=== PATIENT | female | born 1940 | race Caucasian/White ===

== ENCOUNTER 2020-08-19 08:59 | Inpatient (IN) | payer MEDICARE ==
[~2020-08-19] VITALS: Ht 165.1 cm; Wt 62.7 kg
[2020-08-19] VITALS (7 sets, daily range): BP systolic 105–182; BP diastolic 52–88; Ht 165.1 cm; Wt 62.7 kg
--- NOTE | ~2020-08-19 | HEMODYNAMI ---
PATIENT:RIOS YLNN MEDICAL RECORD: [id number] : 42 [id number] ADMISSION DATE: 08/20/20 Generatedon:08/22/202012:44 Patient name: RIOS LYNN Patient #: [id number] SSN: [id number] : 1940 Date of study: 08/22/2020 Page: Of Hemodynamic Procedure Report Patient Data Patient Demographics Procedure consent was obtained First Name: RIOS Gender: Female Last Name: LEAH : 1940 Patient #: [id number] Age: 80 year(s) Race: SSN: [id number] Additional ID: [id number] Contact details Address: [place] [address] State: [place] City: [place] Zip code: [address] Past Medical History Allergies Allergen Reaction Date Comments Reported Other allergy 08/20/2020 pcn Other allergy 08/22/2020 pcn Admission Admission Data Admission Date: 08/20/2020 Admission Time: 14:07 Arrival Date: 08/20/2020 Arrival Time: 0:00 Admit Source: Other Insurance Payor: Medicare Room #: D.[address] [facility] #: [id number] Height (in.): 65 BSA: 1.69 (m2) Height (cm.): 165.1 BMI: 23.01 (kg/m2) Weight (lbs.): 138.27 Weight (kg.): 62.72 Lab Results Lab Result Date: 08/22/2020 Lab Result Time: 0:00 Biochemistry Name Units Result Min Max BUN mg/dl 19 --(----)*- 7 18 Creatinine mg/dl 0.8 --(-*--)-- 0.6 1.3 eGFR ml/min 73.26587 *-(----)-- 90 120 NONAFRICAN CBC Name Units Result Min Max Hematocrit % 30.8 *-(----)-- 42 54 Hemoglobin g/dl 9.8 *-(----)-- 13.5 17.5 Procedure Procedure Types Cath Procedure Diagnostic Procedure [facility] PCI Procedure Coronary Stent Coronary Stent Initial Hemochron ACT Test Procedure Description Procedure Date Procedure Date: 08/22/2020 Procedure Start Time: 12:13 Procedure End Time: 12:42 Procedure Staff Name Function Pool Moreno MD Performing Physician Nettie Ron RT Scrub Mariel Moraes RT Monitor Thalia Lyon, RN Nurse Procedure Data Cath Procedure Fluoroscopy Diagnostic fluoroscopy Total fluoroscopy Time: 3.4 time: 3.4 min min Diagnostic fluoroscopy Total fluoroscopy dose: 750 dose: 750 mGy mGy Contrast Material Contrast Material Type Amount (ml) Isovue 370 71 Entry Location Entry Primary Successful Side Size Upsize Upsize Entry Closure Succe ssful Closure Location (Fr) 1 (Fr) 2 (Fr) Remarks Device Remarks Femoral Right 6 Fr Perclose artery Short ProGlide Estimated blood loss: 10 ml Procedure Complications No complications Procedure Medications Medication Administration Route Dosage Oxygen etCO2 Nasal cannula 2 l/min Heparin Flush Bag added to field 2 bags (1000units/500ml NS) Lidocaine 2% added to field 20 0.9% NaCl I.V. 100 ml/hr Fentanyl I.V. 50 mcg Versed I.V. 1 mg Fentanyl I.V. 25 mcg Versed I.V. 0.5 mg Heparin Bolus I.V. 6000 units Hemodynamics Rest BSA: 1.69 (m2) HGB: 9.8 (g/dl) O2 Consumption: Estimated: 160.34 (ml/min) O2 Con sumption indexed: Estimated:94.88 (ml/min/m) Heart Rate: 83 (bpm) Snapshots Pre Cath Intra NCS Post Cath Vital Signs Time Heart Resp SPO2 etCO2 NIBP (mmHg) Rhythm Pain Sedation Rate (ipm) (%) (mmHg) Status Level (bpm) 11:49:00 74 14 99 0 158/78(127) NSR 0 (11) 10(A) , No pain 11:53:00 75 14 94 0 138/76(113) NSR 0 (11) 10(A) , No pain 11:57:04 76 15 93 0 138/65(113) NSR 0 (11) 10(A) , No pain 12:01:01 72 13 98 0 141/77(116) NSR 0 (11) 10(A) , No pain 12:05:03 72 12 98 0 135/71(111) NSR 0 (11) 10(A) , No pain 12:09:05 73 14 97 0 134/68(107) NSR 0 (11) 10(A) , No pain 12:13:06 74 13 98 0 128/67(108) NSR 0 (11) 10(A) , No pain 12:17:06 70 11 94 0 135/70(112) NSR 0 (11) 9(A) , No pain 12:21:08 74 11 98 0 122/67(92) NSR 0 (11) 9(A) , No pain 12:25:03 72 11 98 0 131/76(105) NSR 0 (11) 9(A) , No pain 12:29:03 72 11 100 0 140/72(110) NSR 0 (11) 9(A) , No pain 12:33:00 71 12 99 0 139/77(117) NSR 0 (11) 9(A) , No pain 12:37:02 67 11 98 0 139/69(108) NSR 0 (11) 9(A) , No pain 12:41:30 70 28 100 0 142/79(116) NSR 0 (11) 9(A) , No pain Medications Time Medication Route Dose Verified Delivered Reason Notes Effectiveness by by 11:44:44 Oxygen etCO2 2 Thalia Thalia for low 02 sats Nasal l/min Sonali Lyon, cannula RN RN 11:45:01 Heparin Flush added 2 Thalia Thalia used for Bag to bags Sonali Lyon procedure (1000units/500ml field RN RN NS) 11:45:13 Lidocaine 2% added 20ml Thalia Pool for local to vial Josh Lyon MD anesthetic field RN 11:45:39 0.9% NaCl I.V. 100 Thalia Thalia Per physician ml/hr Sonali Lyon, RN RN 12:13:26 Fentanyl I.V. 50 Thalia Thalia for sedation mcg Sonali Lyon, RN RN 12:13:31 Versed I.V. 1 mg Thalia Thalia for sedation Sonali Lyon, MENG RN 12:16:03 Fentanyl I.V. 25 Thalia Thalia for sedation mcg Sonali Lyon, RN RN 12:16:07 Versed I.V. 0.5 Thalia Thalia for sedation mg Sonali Lyon, MENG RN 12:17:34 Heparin Bolus I.V. 6000 Thalia Thalia for verif ied w units Sonali Lyon, anticoagulation noemi,rn RN tax form preparer Log Time Note 10:39:51 Patient Height : 65 inches 10:39:51 Patient Weight : 138.27 lbs 10:40:00 Informed consent obtained and on chart 10:40:56 Diagnostic Cath Status : Urgent 10:44:02 Lab Result : Hemoglobin 9.8 g/dl 10:44:02 Lab Result : eGFR NONAFRICAN 73.13715 ml/min 10:44:02 Lab Result : BUN 19 mg/dl 10:44:02 Lab Result : Creatinine 0.8 mg/dl 10:44:02 Lab Result : Hematocrit 30.8 % 11:05:54 Admit Source: Other 11:05:59 Procedure Status PCI. 11:06:03 Time tracking: Regular hours (M-F 7:00 - 5:00) 11:06:15 Plan of Care:Hemodynamics will remain stable., Cardiac rhythm will remain stable., Comfort level will be maintained., Respiratory function will remain adequate., Patient/ family verbilizes understanding of procedure., Procedure tolerated without complication., Recovers from procedure without complications.. 11:06:57 H&P Date Dictated: 08/22/2020 Within 30 days and on chart.. 11:06:58 Pre-procedure instructions explained to patient. 11:06:58 Pre-op teaching completed and patient verbalized understanding. 11:07:00 Family unavailable. 11:07:02 Patient NPO since Midnight. 11:07:58 Patient allergic to Other allergypcn 11:08:07 Alarms reviewed by R. N. 11:08:08 Sharps counted by scrub and verified by R.N. 11:29:54 Nettie Ron RT(R) (CV) sent for patient. Start room use. 11:37:21 Patient received from Med II to CCL 2 Alert and oriented. Tansferred to table in Supine position. 11:37:22 Warm blankets applied, and jenna hugger turned on for patient comfort. 11:37:23 Correct patient and procedure confirmed by team. 11:37:24 ECG and BP/O2 sat monitors applied to patient. 11:37:32 Patient pain scale 0/10 ?. 11:37:37 Pre procedure: right dorsailis pedis pulse 2+ Normal; easily identifiable; not easily obliterated 11:37:50 IV patent on arrival in right forearm with 0.9% NaCl at KVO. 11:37:55 Lab results completed and on chart. 11:37:59 Stress Test: no; N/A ? 11:38:02 Left groin area was prepped with chlora-prep and draped in sterile fashion 11:44:44 Oxygen 2 l/min etCO2 Nasal cannula was administered by Thalia Lyon RN; for low 02 sats; Verbal order read back and verified. 11:45:01 Heparin Flush Bag (1000units/500ml NS) 2 bags added to field was administered by Thalia Lyon RN; used for procedure; Verbal order read back and verified. 11:45:13 Lidocaine 2% 20ml vial added to field was administered by Pool Moreno MD; for local anesthetic; Verbal order read back and verified. 11:45:39 0.9% NaCl 100 ml/hr I.V. was administered by Thalia Lyon RN; Per physician; Verbal order read back and verified. 11:48:10 Vital chart was started 11:48:15 Baseline sample Acquired. 11:48:22 Rhythm: sinus rhythm 11:48:23 Full Disclosure recording started 11:48:39 Is the patient allergic to Iodine/contrast media? No. 11:48:40 Is patient on blood thinner?Yes 11:48:43 ACC The patient was administered the following blood thiners within the last 24 hours: ACCPlavix 11:48:45 Patient diabetic? No. 11:48:48 Previous problem with sedation/anesthesia? No ? 11:48:49 Snore? Yes 11:48:50 Sleep apnea? Yes 11:48:56 Deviated septum? No 11:48:57 Opens mouth fully? Yes 11:48:59 Sticks out tongue? Yes 11:49:02 Airway obstruction? No ? 11:49:07 Dentures? Yes TOP IN 11:49:54 SCAI WILL NOT RESPOND TO PULL NUMBERS. 11:50:04 Use device set CATH PACK 11:50:05 ACIST Syringe (29971) opened to sterile field. 11:50:06 ACIST Hand Control (80268) opened to sterile field. 11:50:06 ACIST Manifold (74402) opened to sterile field. 11:50:06 Medline Cath Pack ([id number]) opened to sterile field. 11:50:07 Bag Decanter (2002S) opened to sterile field. 11:50:07 EMERALD Guide Wire (502-970) opened to sterile field. 11:50:39 SHEATH 6FR [place] (GYO821) opened to sterile field. 11:50:40 TUBING High Pressure Extension Tubing (Josh) ([id number]) opened to sterile field. 11:50:40 INFLATOR Merit BasixCompak (GS6303) opened to sterile field. 11:50:41 BMW 300cm Straight [place] 2 wire ([id number]) opened to sterile field. 11:52:52 GUIDE 6FR XBLAD 3.5 catheter ([id number]) opened to sterile field. 12:03:32 --------ALL STOP TIME OUT------ 12:03:32 Final Timeout: patient, procedure, and site verified with staff and physician. All members of the team are in agreement. 12:03:34 Left groin site verified by team. 12:03:37 Fire Safety Assessment: A--An alcohol-based skin anteseptic being used preoperatively., C--Open oxygen or nitrous oxide is being used., D--An ESU, laser, or fiber-optic light is being used. 12:03:40 Physical assessment completed. ASA score P 2 - A patient with mild systemic disease as per Pool Moreno MD. 12:03:43 2) 60-89 Mildly reduced kidney function, and other findings (as for stage 1) point to kidney disease. 12:03:46 Maximum allowable contrast dose (3.7 X eGFR X 0.75)203 ml. 12:03:50 Sedation plan: IV Moderate Sedation Medication:Versed, Fentanyl 12:13:26 Fentanyl 50 mcg I.V. was administered by Thalia Lyon RN; for sedation; Verbal order read back and verified. 12:13:31 Procedure started. 12:13:31 Versed 1 mg I.V. was administered by Thalia Lyon RN; for sedation; Verbal order read back and verified. 12:13:36 Local anesthetic to right femoral artery with Lidocaine 2% by Pool Moreno MD.INITIAL ACCESS ONLY 12:15:05 A 6 Fr Short sheath was inserted into the Right Femoral artery 12:15:57 Proceeding to intervention. 12:16:03 Fentanyl 25 mcg I.V. was administered by Thalia Lyon RN; for sedation; Verbal order read back and verified. 12:16:03 6 Fr ? guide catheter was inserted over the wire 12:16:07 Versed 0.5 mg I.V. was administered by Thalia Lyon RN; for sedation; Verbal order read back and verified. 12:16:16 6 Fr XBLAD 3.5 guide catheter was inserted over the wire 12:17:34 Heparin Bolus 6000 units I.V. was administered by Thalia Lyon RN; for anticoagulation; verified man franklin rn Verbal order read back and verified. 12:18:01 Pre PCI Site: [place] LAD has 90% stenosis. 12:18:31 BMW 300 wire advanced. 12:19:37 Wire advanced across lesion. 12:22:53 Place stent Inflation Number: 1 A GAGE RX 3.0 x 30 stent ([id number]) was prepped and advanced across the Prox LAD 90. The stent was deployed at 11 CADENCE for 0:00 (min:sec) . 12:24:43 Stent catheter was removed intact over wire. 12:24:44 Wire removed. 12:24:44 Guide catheter removed. 12::14 PERCLOSE opened to sterile field. 12::06 Sheath removed intact; hemostasis achieved with Perclose ProGlide to the Right Femoral artery. 12::15 Fluoroscopy time 03.40 minutes. 12:: Flurop Dose total: 750 12:: Fluoroscopy dose: 750 mGy 12::25 Dose Area Product 95224 mGy/cm. 12:31:13 ACT drawn and resulted at out of range seconds. (normal therapeutic range 180-240 seconds). 12:31:17 ACT drawn and resulted at out of range seconds. (normal therapeutic range 180-240 seconds). 12::49 Contrast amount:Isovue 370 71ml. ::57 Maximum allowable dose exceeded? No. 12:38:42 Sharps counted by scrub and verified by R.N. 12:39:04 Post-op/insertion site Left Femoral artery dressed using a 4 x 4 and Tegaderm. 12:39:09 Post Procedure Pulses reassessed and unchanged 12:39:12 Post procedure: right dorsailis pedis pulse 2+ Normal; easily identifiable; not easily obliterated. 12:39:15 Post-procedure physical assessment completed. ASA score P 2 - A patient with mild systemic disease as per Pool Moreno MD. 12:39:18 Post procedure rhythm: unchanged. 12:39:21 Estimated blood loss: 10 ml 12:39:22 Post procedure instruction explained to patient.Patient verbalizes understanding. 12:39:23 Patient needs reinforcement of post procedure teaching. 12:40:00 Procedure ended.(Physican Out) 12:40:32 Procedure type changed to Cath procedure, Diagnostic procedure, LHC, PCI procedure, Coronary Stent, Coronary Stent Initial, Hemochron ACT Test 12:41:29 Procedure and supply charges have been captured, reviewed, submitted and are correct. 12:41:46 Procedure Complication : No complications 12:41:48 Vital chart was stopped 12:41:50 [facility] Findings: MVD- PCI performed (see procedure note) 12:41:54 Operative report dictated upon procedure completion. 12:41:54 See physician's report for complete and final results. 12:41:56 Report given to [facility]. 12:41:59 Patient transfered to [facility] with Bed. 12:42:01 Procedure ended. 12:42:01 Full Disclosure recording stopped 12:42:31 ACC-PCI Only Patient was given prescriptions, or instructed by Pool Moreno MD to start/continue the following medications upon discharge: Plavix 12:42:32 End room use (Document Last) 12:42:42 End room use (Document Last) 12:43:56 End room use (Document Last) Intervention Summary Intervention Notes Time ActionType Lesion and Equipment Used Action# Pressure Duration Attributes 12:22:53 Place stent Prox LAD GAGE RX 3.0 x 1 11 00:00 30 stent ([id number]) Device Usage Item Name Manufacture Quantity Catalog Hospital Part Current [facility] Lot# / Number Charge Number Stock Stock Serial# Code ACIST Syringe Acist 1 79731 694133 819844 [id number] 20 (47289) Medical Systems Inc ACIST Hand Acist 1 29655 216378 819043 028748 5 Control Medical (49512) Systems Inc ACIST Manifold Acist 1 67945 893462 210853 931025 5 (50499) Medical Systems Inc Medline Cath Medline 1 [id number] 668964 69468 332147 5 Pack ([id number]) Bag Decanter Microtek 1 2001S 824204 83246 750537 5 (2001S) Medical Inc. EMERALD Guide Cardinal 1 502-455 824667 967210 835050 5 Wire (502-455) Health SHEATH 6FR Terumo 1 [id number] 413010 316614 373400 40 [place] (IGM230) TUBING High Merit 1 [id number] 142812 89077 103219 10 Pressure Medical Extension Tubing (Moreno) ([id number]) INFLATOR Merit Merit 1 [id number] 293242 120052 137680 15 [facility]ix[facility] Hospit[facility] Medical (AP3668) BMW 300cm Call 1 [id number] 775443 583024 800355 5 Straight Vascular [place] 2 wire (2844679) GUIDE 6FR Cardinal 1 [id number] 725765 615238 372058 10 XBLAD 3.5 Health catheter ([id number]) GAGE RX 3.0 x Medtronic 1 [id number] 277082 2352987 400776 5 [id number] 30 stent ([id number]) PERCLOSE Unknown 1 0 0 C-CODE 1760 Signature Audit [place] Stage Time Signature Unsigned Intra-Procedure 08/22/2020 Mariel Moraes 12:42:42 PM RT(R) Intra-Procedure 08/22/2020 Thalia Lyon, 12:43:56 PM RN Intra-Procedure 08/22/2020 Pool Moreno MD 12:44:11 PM Signatures Performing Physician : Signature : Pool Moreno MD Date : Time : Monitor : Mariel Moraes Signature : RT Date : Time : Nurse : Thalia Lyon, Signature : RN Date : Time : [address] [place] [address]
--- NOTE | ~2020-08-19 | HEMODYNAMI ---
PATIENT:RIOS LYNN MEDICAL RECORD: [id number] : 42 [id number] ADMISSION DATE: 08/19/20 Generatedon:08/20/20209:51 Patient name: RIOS LYNN Patient #: [id number] SSN: [id number] : 1940 Date of study: 08/20/2020 Page: Of Hemodynamic Procedure Report Patient Data Patient Demographics Procedure consent was obtained First Name: RIOS Gender: Female Last Name: LEAH : 1940 Patient #: [id number] Age: 80 year(s) Race: Unknown SSN: [id number] Additional ID: [id number] Contact details Address: [place] [address] State: [place] City: [place] Zip code: [address] Past Medical History Allergies Allergen Reaction Date Comments Reported Other allergy 08/20/2020 pcn Admission Admission Data Admission Date: 08/19/2020 Admission Time: 11:19 Arrival Date: 08/20/2020 Arrival Time: 0:00 Admit Source: Other Insurance Payor: Medicare Room #: D.2117 [facility] #: [id number] Height (in.): 65 BSA: 1.69 (m2) Height (cm.): 165.1 BMI: 23.01 (kg/m2) Weight (lbs.): 138.27 Weight (kg.): 62.72 Lab Results Lab Result Date: 08/20/2020 Lab Result Time: 0:00 Biochemistry Name Units Result Min Max BUN mg/dl 19 --(----)*- 7 18 Creatinine mg/dl 1.1 --(--*-)-- 0.6 1.3 eGFR ml/min 51 *-(----)-- 90 120 NONAFRICAN CBC Name Units Result Min Max Hemoglobin g/dl 10.3 *-(----)-- 13.5 17.5 Procedure Procedure Types Cath Procedure Diagnostic Procedure LHC LHC w/Coronaries Sedation Charges Moderate Sedation up to 45 minutes PCI Procedure Coronary Stent Coronary Stent Initial Hemochron ACT Test Procedure Description Procedure Date Procedure Date: 08/20/2020 Procedure Start Time: 9:10 Procedure End Time: 9:47 Procedure Staff Name Function Pool Moreno MD Performing Physician Wilian Lopez RT Monitor Yusef Gillespie RN Nurse Esme Workman RT Scrub Indication Chest pain Procedure Data Cath Procedure Fluoroscopy Diagnostic fluoroscopy Total fluoroscopy Time: 7.2 time: 7.2 min min Diagnostic fluoroscopy Total fluoroscopy dose: dose: 1068 mGy 1068 mGy Contrast Material Contrast Material Type Amount (ml) Isovue 300 142 Entry Location Entry Primary Successful Side Size Upsize Upsize Entry Closure Succes sful Closure Location (Fr) 1 (Fr) 2 (Fr) Remarks Device Remarks Femoral Right 5 Fr 6 Fr Exoseal artery Short Estimated blood loss: 10 ml Diagnostic catheters Device Type Used For End Catheter Placement MULTIPACK JL 4.0 5Fr Procedure catheter MULTIPACK 3DRC 5Fr Procedure catheter MULTIPACK Pigtail 5 Fr Procedure catheter Procedure Complications No complications Procedure Medications Medication Administration Route Dosage Oxygen etCO2 Nasal cannula 2 l/min Heparin Flush Bag added to field 2 bags (1000units/500ml NS) 0.9% NaCl I.V. 100 ml/hr Lidocaine 2% added to field 20 Fentanyl I.V. 50 mcg Versed I.V. 1 mg Fentanyl I.V. 50 mcg Versed I.V. 1 mg Heparin Bolus I.V. 6000 units Nitroglycerin IC/IA I.C. 100 mcg Nitroglycerin IC/IA I.C. 100 mcg Plavix P.O. 600 mg Hemodynamics Rest BSA: 1.69 (m2) HGB: 10.3 (g/dl) O2 Consumption: Estimated: 146.34 (ml/min) O2 Co nsumption indexed: Estimated:86.59 (ml/min/m) Heart Rate: 61 (bpm) Pressure Samples Time Site Value (mmHg) Purpose Heart Use Rate(bpm) 9:13 AO 160/67(100) Snapshot 78 9:13 AO 157/77(111) Snapshot 77 9:17 LV 137/6,17 Snapshot 91 9:18 AO 145/69(103) Pullback 82 9:18 LV 139/9,21 Pullback 82 Gradients Valve Time Site 1 Site 2 Mean SEP/DFP Peak To Heart Use (mmHg) (sec/min) Peak Rate (mmHg) (bpm) Aortic 9:18 LV AO 0 8 0 82 139/9,21 145/69(103) Calculations Valve P-P Mean Valve Index Valve Source Name Gradient Area Flow (cm2) Aortic 0 0 0 0 Snapshots Pre Cath Intra NCS Post Cath Vital Signs Time Heart Resp SPO2 etCO2 NIBP (mmHg) Rhythm Pain Sedation Rate (ipm) (%) (mmHg) Status Level (bpm) 8:59:10 68 17 99 31.6 156/88(140) NSR 0 (11) 10(A) , No pain 9:03:34 80 16 100 30.9 162/89(139) NSR 0 (11) 10(A) , No pain 9:07:58 79 16 100 26.4 157/89(138) NSR 0 (11) 10(A) , No pain 9:12:24 76 17 100 33.2 148/77(128) NSR 0 (11) 9(A) , No pain 9:16:38 83 17 98 0 144/88(123) NSR 0 (11) 9(A) , No pain 9:20:55 79 16 98 37.7 138/80(107) NSR 0 (11) 9(A) , No pain 9:25:13 81 17 98 36.9 139/85(118) NSR 0 (11) 9(A) , No pain 9:29:33 62 17 99 34.7 138/67(114) NSR 0 (11) 9(A) , No pain 9:33:53 76 16 98 36.2 148/76(109) NSR 0 (11) 9(A) , No pain 9:38:13 72 16 98 38.5 159/84(128) NSR 0 (11) 9(A) , No pain 9:42:35 73 16 99 36.9 168/88(138) NSR 0 (11) 9(A) , No pain 9:47:02 54 17 99 35.4 176/92(145) NSR 0 (11) 9(A) , No pain Medications Time Medication Route Dose Verified Delivered Reason Notes Effectiveness by by 8:59:15 Oxygen etCO2 2 Pool [place] Per physician Nasal l/min Josh Gillespie RN cannula 8:59:23 Heparin Flush added 2 Pool Yusef used for Bag to bags Josh Gillespie RN procedure (1000units/500ml field NS) 8:59:32 0.9% NaCl I.V. 100 Pool Yusef Per physician ml/hr Josh Gillespie RN 8:59:44 Lidocaine 2% added 20ml Pool Yusef for local to vial Josh Gillespie RN anesthetic field 9:03:55 Fentanyl I.V. 50 Pool Yusef for sedation mcg Josh Gillespie RN 9:04:03 Versed I.V. 1 mg Pool Yusef for sedation Josh Gillespie RN 9:11:17 Fentanyl I.V. 50 Pool Yusef for sedation mcg Josh Gillespie RN 9:11:22 Versed I.V. 1 mg Pool Yusef for sedation Josh Gillespie RN 9:23:27 Heparin Bolus I.V. 6000 Pool Yusef for units Josh Gillespie RN anticoagulation 9:29:25 Nitroglycerin I.C. 100 Pool Pool for IC/IA mcg Josh Moreno MD vasodilation 9:34:49 Nitroglycerin I.C. 100 Pool Pool for IC/IA mcg Josh Moreno MD vasodilation 9:48:49 Plavix P.O. 600 Pool Pool for mg Josh Moreno MD antiplatelet therapy Procedure Log Time Note 8:34:54 Arrival Date: 08/20/2020 12:00:00 AM 8:35:11 Admit Source: Other 8:35:13 Insurance Payor : Medicare 8:35:31 Patient Height : 65 inches 8:35:37 Patient Weight : 138.27 lbs 8:36:09 Lab Result : eGFR NONAFRICAN 51 ml/min 8:36:09 Lab Result : Hemoglobin 10.3 g/dl 8:36:09 Lab Result : BUN 19 mg/dl 8:36:09 Lab Result : Creatinine 1.1 mg/dl 8:36:15 Diagnostic Cath Status : Elective 8:36:48 Indication : Chest pain 8:37:23 Procedure Status Urgent Heart Cath (IP). 8:37:39 Yusef Gillespie RN sent for patient. Start room use. 8:37:43 Time tracking: Call back (After hours or weekends) 8:37:51 Plan of Care:Hemodynamics will remain stable., Cardiac rhythm will remain stable., Comfort level will be maintained., Respiratory function will remain adequate., Patient/ family verbilizes understanding of procedure., Procedure tolerated without complication., Recovers from procedure without complications.. 8:37:57 Patient received from Med II to CCL 1 Alert and oriented. Tansferred to table in Supine position. 8:38:01 Signed procedure consent form obtained from patient. 8:38:02 Warm blankets applied, and jenna hugger turned on for patient comfort. 8:38:04 Correct patient and procedure confirmed by team. 8:40:43 H&P Date Dictated: 08/19/2020 Within 30 days and on chart., H&P Addendum completed by physician on day of procedure. (MUST COMPLETE FOR ALL OUTPATIENTS). 8:40:46 Pre-procedure instructions explained to patient. 8:40:50 Family in patients room. 8:40:52 Patient NPO since Midnight. 8:41:10 Patient allergic to Other allergypcn 8:41:17 Was the patient premedicated? Yes 8:41:20 Is patient on blood thinner?No 8:46:22 3a) 45-59 Moderately reduced kidney function. 8:46:26 Maximum allowable contrast dose (3.7 X eGFR X 0.75)141 ml. 8:57:56 ECG and BP/O2 sat monitors applied to patient. 8:57:57 Vital chart was started 8:57:58 Baseline sample Acquired. 8:58:01 Rhythm: sinus rhythm 8:58:03 Full Disclosure recording started 8:58:07 Patient diabetic? No. 8:58:10 Previous problem with sedation/anesthesia? No ? 8:58:11 Snore? Yes 8:58:12 Sleep apnea? Yes 8:58:13 Deviated septum? No 8:58:13 Opens mouth fully? Yes 8:58:14 Sticks out tongue? Yes 8:58:16 Airway obstruction? No ? 8:58:20 Dentures? Yes TOP IN TIGHT 8:58:23 Pre procedure: right dorsailis pedis pulse 2+ Normal; easily identifiable; not easily obliterated 8:58:26 Patient pain scale 2/10 ?. 8:58:37 IV patent on arrival in left wrist with 0.9% NaCl at O. 8:58:43 Lab results completed and on chart. 8:58:47 Right groin area was prepped with chlora-prep and draped in sterile fashion 8:58:48 Alarms reviewed by R. N. 8:58:49 Sharps counted by scrub and verified by R.N. 8:58:51 Use device set Femoral Dx 8:58:52 ACIST Syringe (93670) opened to sterile field. 8:58:52 Bag Decanter (2002S) opened to sterile field. 8:58:53 Medline Cath Pack ([id number]) opened to sterile field. 8:58:54 ACIST Hand Control (26148) opened to sterile field. 8:58:54 ACIST Manifold (19571) opened to sterile field. 8:58:54 DIAGNOSTIC Multipack 5Fr catheter set (ZB0790) opened to sterile field. 8:58:55 Tegaderm 4 x 4 (1626W) opened to sterile field. 8:58:56 EMERALD Guide Wire (093-312) opened to sterile field. 8:58:56 SHEATH 5FR Malin (OWA499) opened to sterile field. 8:59:03 Physician arrived 8:59:04 --------ALL STOP TIME OUT------ 8:59:04 Final Timeout: patient, procedure, and site verified with staff and physician. All members of the team are in agreement. 8:59:06 Right groin site verified by team. 8:59:09 Fire Safety Assessment: A--An alcohol-based skin anteseptic being used preoperatively., C--Open oxygen or nitrous oxide is being used., D--An ESU, laser, or fiber-optic light is being used. 8:59:11 Physical assessment completed. ASA score P 3 - A patient with severe systemic disease as per Pool Moreno MD. 8:59:15 Oxygen 2 l/min etCO2 Nasal cannula was administered by Yusef Gillespie RN; Per physician; Verbal order read back and verified. 8:59:23 Heparin Flush Bag (1000units/500ml NS) 2 bags added to field was administered by Yusef Gillespie RN; used for procedure; Verbal order read back and verified. 8:59:32 0.9% NaCl 100 ml/hr I.V. was administered by Yusef Gillespie RN; Per physician; Verbal order read back and verified. 8:59:44 Lidocaine 2% 20ml vial added to field was administered by Yusef Gillespie RN; for local anesthetic; Verbal order read back and verified. 9:03:55 Fentanyl 50 mcg I.V. was administered by Yusef Gillespie RN; for sedation; Verbal order read back and verified. 9:03:56 Zero performed for pressure channel P1 9:04:03 Versed 1 mg I.V. was administered by Yusef Gillespie RN; for sedation; Verbal order read back and verified. 9:10:49 Procedure started. 9:10:52 Local anesthetic to right femoral artery with Lidocaine 2% by Pool Moreno MD.INITIAL ACCESS ONLY 9:11:00 A 5 Fr sheath was inserted into the Right Femoral artery 9:11:17 Fentanyl 50 mcg I.V. was administered by Yusef Gillespei RN; for sedation; Verbal order read back and verified. 9:11:22 Versed 1 mg I.V. was administered by Yusef Gillespie RN; for sedation; Verbal order read back and verified. 9:11:32 Zero performed for pressure channel P1 9:13:36 A MULTIPACK JL 4.0 5Fr catheter was advanced over the wire and used for Procedure. 9:13:38 LCA angiography performed. 9:14:37 Catheter exchanged over wire. 9:14:42 A MULTIPACK 3DRC 5Fr catheter was advanced over the wire and used for Procedure. 9:15:46 RCA angiography performed. 9:16:47 Catheter exchanged over wire. 9:16:52 A MULTIPACK Pigtail 5 Fr catheter was advanced over the wire and used for Procedure. 9:18:01 LV gram done using LEE 9:18:04 Injector settings: Ml/sec: 10, Volume: 20, 9:18:05 LV hemodynamics recorded. 9:18:19 EF : 50 % 9:19:12 BMW 300cm Lead 2 J wire ([id number]) opened to sterile field. 9:19:12 TUBING High Pressure Extension Tubing (Josh) ([id number]) opened to sterile field. 9:19:15 INFLATOR Merit BasixCompak (KB3935) opened to sterile field. 9:19:23 GUIDE 6FR JR 4.0 catheter (TQ4FL21) opened to sterile field. 9:19:27 Catheter removed. 9:19:31 SHEATH 6FR Malin (NFR328) opened to sterile field. 9:19:40 Sheath upsized to a 6 Fr Short. 9:19:46 6 Fr JR 4 guide catheter was inserted over the wire 9:19:53 Pre PCI Site: [place] pRCA has 100% stenosis. 9:20:46 ACC Pre-intervention NISREEN Flow is 0. 9:23:00 BMW wire advanced. 9:23:14 Wire advanced across lesion. 9:23:27 Heparin Bolus 6000 units I.V. was administered by Yusef Gillespie RN; for anticoagulation; Verbal order read back and verified. 9:25:58 Inflate balloon Inflation number: 1 A EUPHORA 2.5 x 15 Balloon ([id number]) was prepped and advanced across the Prox RCA , then inflated to 10 CADENCE for 0:10 (min:sec) . 9:26:28 Inflation number: 2 The EUPHORA 2.5 x 15 Balloon ([id number]) was reinflated across the Prox RCA , to 10 CADENCE for 0:10 (min:sec) . 9:27:38 Balloon removed over the wire. 9:29:25 Nitroglycerin IC/IA 100 mcg I.C. was administered by Pool Moreno MD; for vasodilation; Verbal order read back and verified. 9:33:06 Place stent Inflation Number: 3 A GAGE OTW 3.0 x 38 stent ([id number]) was prepped and advanced across the Prox RCA . The stent was deployed at 13 CADENCE for 0:10 (min:sec) . 9:34:49 Nitroglycerin IC/IA 100 mcg I.C. was administered by Pool Moreno MD; for vasodilation; Verbal order read back and verified. 9:36:13 Stent catheter was removed intact over wire. 9:38:37 Place stent Inflation Number: 1 A GAGE RX 2.75 x 12 stent ([id number]) was prepped and advanced across the Mid RCA . The stent was deployed at 12 CADENCE for 0:10 (min:sec) . 9:38:47 Post PCI Site: [place] pRCA has 0% stenosis. 9:38:50 ACC Post-intervention NISREEN Flow is 3. 9:38:56 Stent catheter was removed intact over wire. 9:38:57 Wire removed. 9:38:58 Guide catheter removed. 9:39:05 EXOSEAL 6Fr (EX600) opened to sterile field. 9:39:46 Sheath removed intact; hemostasis achieved with Exoseal to the Right Femoral artery. 9:39:48 Procedure ended.(Physican Out) 9:43:13 Fluoroscopy time 07.20 minutes. 9:43:17 Fluoroscopy dose: 1068 mGy 9:43:17 Flurop Dose total: 1068 9:43:25 Dose Area Product 67373 mGy/cm. 9:43:33 Contrast amount:Isovue 300 142ml. 9:43:37 Maximum allowable dose exceeded? No. 9:45:14 ACT drawn and resulted at 231 seconds. (normal therapeutic range 180-240 seconds). 9:45:29 Insertion/operative site no bleeding no hematoma. 9:45:32 Post-op/insertion site Right Femoral artery dressed using a 4 x 4 and Tegaderm. 9:45:35 Post right femoral artery:stable, soft, clean and dry 9:45:37 Post Procedure Pulses reassessed and unchanged 9:45:39 Post-procedure physical assessment completed. ASA score P 3 - A patient with severe systemic disease as per Pool Moreno MD. 9:45:41 Post procedure rhythm: unchanged. 9:45:46 Estimated blood loss: 10 ml 9:46:00 Post procedure instruction explained to patient.Patient verbalizes understanding. 9:46:01 Patient needs reinforcement of post procedure teaching. 9:46:25 Procedure type changed to Cath procedure, Diagnostic procedure, C, [facility] w/Coronaries, Sedation Charges, Moderate Sedation up to 45 minutes, PCI procedure, Coronary Stent, Coronary Stent Initial, Hemochron ACT Test 9:47:29 Procedure and supply charges have been captured, reviewed, submitted and are correct. 9:47:33 Procedure Complication : No complications 9:47:36 Vital chart was stopped 9:47:39 [facility] Findings: MVD- PCI performed (see procedure note) 9:47:40 Operative report dictated upon procedure completion. 9:47:41 See physician's report for complete and final results. 9:47:42 Report given to PCU. 9:47:45 Patient transfered to PCU with Stretcher. 9:47:47 Procedure ended. 9:47:47 Full Disclosure recording stopped 9:47:55 ACC-PCI Only Patient was given prescriptions, or instructed by Pool Moreno MD to start/continue the following medications upon discharge: Aspirin, Plavix 9:47:56 End room use (Document Last) 9:48:49 Plavix 600 mg P.O. was administered by Pool Moreno MD; for antiplatelet therapy; Verbal order read back and verified. 9:50:15 End room use (Document Last) 9:50:42 Esme Workman RT(R) was relieved by Wilian Lopez RT(R) as monitoring person 9:50:42 End room use (Document Last) 9:51:06 Wilian Lopez RT(R) was relieved by Wilian GAN(R) as monitoring person Intervention Summary Intervention Notes Time ActionType Lesion and Equipment Used Action# Pressure Duration Attributes 9:25:58 Inflate Prox RCA EUPHORA 2.5 x 1 10 00:10 balloon 15 Balloon ([id number]) 9:26:28 Reinflate Prox RCA EUPHORA 2.5 x 2 10 00:10 balloon 15 Balloon ([id number]) 9:33:06 Place stent Prox RCA GAGE OTW 3.0 x 3 13 00:10 38 stent ([id number]) 9:38:37 Place stent Mid RCA GAGE RX 2.75 x 1 12 00:10 12 stent ([id number]) Device Usage Item Name Manufacture Quantity Catalog Hospital Part [facility] Lot# / Number Charge Number Stock Stock Serial# Code ACIST Syringe Acist 1 78619 848716 195757 027041 20 (75974) Medical Systems Inc Bag Decanter Microtek 1 464598 23762 108603 5 () Medical Inc. Medline Cath Medline 1 [id number] 204977 75479 649951 5 Pack ([id number]) ACIST Hand Acist 1 78516 093529 026951 579121 5 Control Medical (39264) Systems Inc ACIST Manifold Acist 1 13961 432466 278886 655811 5 (67279) Medical Systems Inc DIAGNOSTIC Cardinal 1 ZO0486 904673 95062 534109 30 Multipack 5Fr Health catheter set (BN2825) Tegaderm 4 x 4 3M 1 1626W 317056 412889 041953 5 (1626W) EMERALD Guide Cardinal 1 502-455 733142 392035 651370 5 Wire (502-455) Health SHEATH 5FR Terumo 1 MQE185 103845 736266 613110 5 Malin (GLS168) MULTIPACK JL Cardinal 1 491200 5 4.0 5Fr Health catheter MULTIPACK 3DRC Cardinal 1 265790 5 5Fr catheter Health MULTIPACK Cardinal 1 314141 5 Pigtail 5 Fr Health catheter BMW 300cm Call 1 [id number] 882836 207007 592580 5 Lead 2 J Vascular wire (8291541C) TUBING High Merit 1 EV3320Z 646280 07685 665406 10 Pressure Medical Extension Tubing (Josh) (JK4486G) INFLATOR Merit Merit 1 MX8101 016422 105986 995130 15 BasEmergent Views Medical (ZQ0148) GUIDE 6FR JR Medtronic 1 CM0GZ67 133046 62968 951100 1 4.0 catheter (YH8RA80) SHEATH 6FR Terumo 1 RRR261 799267 559542 074227 40 Malin (DIY223) EUPHORA 2.5 x Medtronic 1 [id number] 500142 180996 665229 5 [id number] 15 Balloon ([id number]) GAGE OTW 3.0 x Medtronic 1 [id number] 389476 0284238 418157 5 [id number] 38 stent ([id number]) GAGE RX 2.75 x Medtronic 1 [id number] 866195 9622249 546579 5 [id number] 12 stent ([id number]) EXOSEAL 6Fr Cardinal 1 EX600 817297 050358 503535 10 (EX600) Health Signature Audit [place] [facility] Time Signature Unsigned Intra-Procedure 08/20/2020 Wilian Lopez 9:50:15 AM RT(R) Intra-Procedure 08/20/2020 Yusef Gillespie 9:51:01 AM RN Intra-Procedure 08/20/2020 Pool Moreno MD 9:51:34 AM [facility] [address] [facility] [place] [address]
[2020-08-19 09:25] LABS: BASOPHILS 0.3 % (0-2); EOSINOPHILS 1.5 % (0-7); HEMATOCRIT 37.8 % (36.0-48.0); HEMOGLOBIN 12.1 g/dL (12-16); IMMATURE GRANULOCYTES 0.2 % (0-5); LYMPHOCYTES 21.7 % (15-50); MCH 27.3 pg (26.0-34.0); MCV 85.3 fL (80.0-100.0); MEAN PLATELET VOLUME 10.8 fL (7.4-10.4); MONOCYTES 6.4 % (2-11); NEUTROPHILS 69.9 % (40-80); PLATELET COUNT 298 10x3/uL (130-400); RBC 4.43 10x6/uL (4.00-5.40); RDW 15.2 % (11.5-14.5); WBC 11.2 10x3/uL (4.8-10.8)
[2020-08-19 09:33] LABS: APTT 23.2 SECONDS (22.8-39.4); CALC OSMOLALITY 280 mosm/kg (275-300); CALCIUM 9.8 mg/dL (8.5-10.1); CARBON DIOXIDE 24.8 mmol/L (21.0-32.0); CHLORIDE - SERUM 103 mmol/L (98-107); CREATININE - SERUM 1.1 mg/dL (0.6-1.3); GLUCOSE 130 mg/dL (74-106); INR 0.96 (0.85-1.17); POTASSIUM - SERUM 4.2 mmol/L (3.5-5.1); PROTIME 12.8 SECONDS (11.6-15.0); SODIUM 138 mmol/L (136-145); UREA NITROGEN 20 mg/dL (7-18); eGFR NON AFRICAN AMERICAN 51 mL/min (90-120)
[2020-08-19 09:57] LABS: ALBUMIN 3.6 g/dL (3.4-5.0); ALKALINE PHOSPHATASE 96 U/L (30-120); ALT (SGPT) 17 U/L (10-68); CREATINE KINASE 82 UL (21-215); MAGNESIUM - SERUM 2.1 mg/dL (1.8-2.4); PROTEIN - SERUM 8.6 g/dL (6.4-8.2)
[2020-08-19 10:02] LABS: TROPONIN-I 0.164 ng/mL (0.000-0.060)
--- NOTE | 2020-08-19 10:02 | NUR ---
ELEVATED TROPONIN OF 0.164 CALLED FROM LAB, ER PROVIDER NOTIFIED.
[2020-08-19 12:09] LABS: CKMB 2.2 U/L (0.0-3.6); CREATINE KINASE 65 UL (21-215)
[2020-08-19 18:10] LABS: CKMB 9.5 U/L (0.0-3.6); CREATINE KINASE 108 UL (21-215)
[2020-08-19 18:20] LABS: TROPONIN-I 1.542 ng/mL (0.000-0.060)
[2020-08-19 23:40] LABS: CKMB 24.5 U/L (0.0-3.6); CREATINE KINASE 195 UL (21-215)
[2020-08-19 23:44] LABS: TROPONIN-I 4.252 ng/mL (0.000-0.060)
--- NOTE | 2020-08-20 00:01 | NUR ---
CRITICAL TROPONIN 4.[address] LUNA. PT IS NPO FOR POSSIBLE CATH IN AM. CPOC. PT CURRENTLY WITH NO REPORTS OF CHEST PAIN. SB/57 PER TELEMETRY.
[2020-08-20 05:33] VITALS: BP 143/65
[2020-08-20 07:07] LABS: BASOPHILS 0.1 % (0-2); EOSINOPHILS 0.1 % (0-7); HEMATOCRIT 33.6 % (36.0-48.0); HEMOGLOBIN 10.3 g/dL (12-16); IMMATURE GRANULOCYTES 0.3 % (0-5); LYMPHOCYTES 23.8 % (15-50); MCH 26.4 pg (26.0-34.0); MCHC 30.7 g/dL (31.0-37.0); MCV 86.2 fL (80.0-100.0); MEAN PLATELET VOLUME 11.9 fL (7.4-10.4); MONOCYTES 7.7 % (2-11); PLATELET COUNT 280 10x3/uL (130-400); RDW 15.8 % (11.5-14.5)
[2020-08-20 07:10] LABS: WBC 7.9 10x3/uL (4.8-10.8)
[2020-08-20 07:21] LABS: ALBUMIN 3.1 g/dL (3.4-5.0); BILIRUBIN - TOTAL 0.29 mg/dL (0.2-1.3); CALCIUM 8.9 mg/dL (8.5-10.1); CREATININE - SERUM 1.1 mg/dL (0.6-1.3); PROTEIN - SERUM 7.3 g/dL (6.4-8.2)
[2020-08-20 07:46] LABS: ANION GAP 12.7 mmol/L (8-16); CALCIUM 8.7 mg/dL (8.5-10.1); CARBON DIOXIDE 24.6 mmol/L (21.0-32.0); CHOL - HDL RATIO 3.3 ratio (2.3-4.1); CREATININE - SERUM 1.1 mg/dL (0.6-1.3); LDL-HDL RATIO 1.9 ratio (1.5-3.5); POTASSIUM - SERUM 4.3 mmol/L (3.5-5.1)
--- NOTE | 2020-08-20 08:22 | NUR ---
AM MEDS GIVEN AT THIS TIME. ALSO GAVE 4MG OF ZOFRAN FOR NAUSEA, AND 4MG OF OF MORPHINE FOR PAIN LEVEL OF 8/10. PT DENIES ANY OTHER NEEDS AT THIS TIMEL. CALL LIGHT IN REACH, NAD NOTED,W ILL CONTINUE TO MONITOR.
[2020-08-20 08:31] VITALS: BP 171/75
--- NOTE | 2020-08-20 08:31 | NUR ---
PRE-OP MEDS GIVEN AT THIS TIME.
--- NOTE | 2020-08-20 08:55 | NUR ---
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
--- NOTE | 2020-08-20 10:12 | NUR ---
RECEIVED PT BACK TO ROOM 2116. PT STILL DROWSY BUT EASILY AROUSES TO VOICE. VITAL SIGNS STABLE, PLACED PT ON FREQUENT VITAL SIGNS. RT GROIN DRESSING CDI, NO S.S OF HEMATOMA OR BLEEDING. CALL LIGHT IN REACH, WILL CONTINUE TO MONITOR.
--- NOTE | 2020-08-20 11:13 | NUR ---
NO CHANGES TO RT GROIN FROM PREVIOUS ASSESSMENT. PT RESTING COMFORTABLY IN BED. DENIES ANY NEEDS AT THIS TIME. CALL LIGHT IN REACH,NAD NOTED, WILL CONTINUE TO MONITOR.
[2020-08-20 11:45] VITALS: BP 145/78
--- NOTE | 2020-08-20 12:50 | NUR ---
NOTIFIED BY [employer], THAT PT WENT FROM SR TO [facility] 140S. NOTIFIED JOSEPH CARRIZALES APRN AND PAGED DR. LUNA.
[2020-08-20 16:26] VITALS: BP 123/68
--- NOTE | 2020-08-20 20:10 | NUR ---
RECEIVED REPORT, WILL ASSUME CARE OF PT, IV-LAC-NS@30, R.GROIN DRESSING-DCI,DENIES ANY NEEDS, BED IS LOW, SRX2, CALL LIGHT IN REACH, WILL CONTINUE PLAN OF CARE
[2020-08-20 20:51] VITALS: BP 147/81
[2020-08-21 00:10] VITALS: BP 132/70
--- NOTE | 2020-08-21 00:39 | NUR ---
I have reviewed this patient and I concur with the Shift Assessment completed by the Licensed Practical Nurse today this shift.
[2020-08-21 05:34] VITALS: BP 145/55
[2020-08-21 05:35] LABS: BASOPHILS 0.4 % (0-2); EOSINOPHILS 0.4 % (0-7); HEMATOCRIT 29.7 % (36.0-48.0); HEMOGLOBIN 9.3 g/dL (12-16); IMMATURE GRANULOCYTES 0.1 % (0-5); LYMPHOCYTES 25.9 % (15-50); MCH 26.7 pg (26.0-34.0); MCHC 31.3 g/dL (31.0-37.0); MCV 85.3 fL (80.0-100.0); MEAN PLATELET VOLUME 11.5 fL (7.4-10.4); MONOCYTES 10.3 % (2-11); NEUTROPHILS 62.9 % (40-80); PLATELET COUNT 234 10x3/uL (130-400); RBC 3.48 10x6/uL (4.00-5.40); RDW 15.6 % (11.5-14.5); WBC 8.3 10x3/uL (4.8-10.8)
[2020-08-21 05:57] LABS: ALBUMIN 2.7 g/dL (3.4-5.0); ANION GAP 9.9 mmol/L (8-16); BILIRUBIN - TOTAL 0.3 mg/dL (0.2-1.3); CALCIUM 8.1 mg/dL (8.5-10.1); CARBON DIOXIDE 25.8 mmol/L (21.0-32.0); CREATININE - SERUM 0.9 mg/dL (0.6-1.3); POTASSIUM - SERUM 3.7 mmol/L (3.5-5.1); PROTEIN - SERUM 6.5 g/dL (6.4-8.2)
--- NOTE | 2020-08-21 07:58 | NUR ---
AM MEDS GIVEN AT THIS TIME. ALSO GAVE 650MG OF TYLENOL FOR PAIN LEVEL OF 5/10 TO HEAD. PT A/O X4, RESP EVEN AND NONLABORED ON RA. LT HAND INFUSING NS AT 30. HEART MONITOR SHOWING SR WITH RATE OF 75. RT GROIN DRESSING CDI, NO SIGNS OF BLEEDING OR HEMATOMA.
[2020-08-21 08:23] VITALS: BP 142/75
[2020-08-21 10:30] LABS: CHOL - HDL RATIO 3.1 ratio (2.3-4.1); LDL-HDL RATIO 1.7 ratio (1.5-3.5)
--- NOTE | 2020-08-21 11:31 | NUR ---
PT RESTING COMFORTABLY IN BED, DENIES ANY NEEDS AT THIS TIME. CALL LIGHT IN REACH,NAD NOTED, WILL CONTINUE TO MONITOR.
[2020-08-21 12:19] VITALS: BP 99/53
[2020-08-21 16:00] VITALS: BP 158/78
[2020-08-21 21:02] VITALS: BP 125/69
[2020-08-22 00:45] VITALS: BP 138/70
[2020-08-22 04:37] VITALS: BP 130/60
--- NOTE | 2020-08-22 06:00 | NUR ---
PT PREPPED AND HIBICLENS ADMINISTERED.
[2020-08-22 06:23] LABS: HEMATOCRIT 30.8 % (36.0-48.0); HEMOGLOBIN 9.8 g/dL (12-16); MCH 27.2 pg (26.0-34.0); MCHC 31.8 g/dL (31.0-37.0); MCV 85.6 fL (80.0-100.0); MEAN PLATELET VOLUME 11.7 fL (7.4-10.4); PLATELET COUNT 226 10x3/uL (130-400); RDW 15.4 % (11.5-14.5); WBC 8.1 10x3/uL (4.8-10.8)
[2020-08-22 06:45] LABS: ALBUMIN 2.7 g/dL (3.4-5.0); ANION GAP 11.9 mmol/L (8-16); BILIRUBIN - TOTAL 0.17 mg/dL (0.2-1.3); CALCIUM 8.2 mg/dL (8.5-10.1); CARBON DIOXIDE 24.2 mmol/L (21.0-32.0); CREATININE - SERUM 0.8 mg/dL (0.6-1.3); POTASSIUM - SERUM 4.1 mmol/L (3.5-5.1); PROTEIN - SERUM 6.6 g/dL (6.4-8.2)
[2020-08-22 07:48] VITALS: BP 179/59
--- NOTE | 2020-08-22 07:58 | NUR ---
NEW 20G IV STARTED TO RT FA X1 STICK. PT A/O X4, DENIES ANY NEEDS AT THIS TIME. CALL LIGHT IN REACH, WILL CONTINUE TO MONITOR.
[2020-08-22 11:25] VITALS: BP 144/64
--- NOTE | 2020-08-22 11:41 | NUR ---
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
[2020-08-22 12:26] LABS: LYMPHOCYTES 28 % (15-50); MONOCYTES 18 % (2-11); NEUTROPHILS 54 % (40-80); PLATELET ESTIMATE NORMAL; ROULEAUX OCC
--- NOTE | 2020-08-22 12:56 | NUR ---
RECEIVED PT BACK TO ROOM 2116. PT DROWSY BUT EASILY AROUSES TO VOICE. VITAL SIGNS STABLE, PLACED ON FREQUENT VITAL SIGNS. LT GROIN DRESSING CDI, NO S/S OF BLEEDING OR HEMATOMA. PT DENIES ANY NEEDS AT THIS TIME. CALL LIGHT IN REACH, NAD NOTED, WILL CONTINUE TO MONITOR.
[2020-08-22 14:45] VITALS: BP 131/70
--- NOTE | 2020-08-22 16:00 | MORECARE ---
CASE MANAGEMENT DISCHARGE SUMMARY PATIENT: RIOS LYNN UNIT: [id number] ADM DATE: 08/20/20 AGE: 80 : 42 SEX: F ROOM/BED: D.[facility] AUTHOR: DESMOND,DOC PHYSICIAN: REFERRING PHYSICIAN: DALTON LÓPEZ MD DATE OF SERVICE: 08/22/20 Discharge Plan Patient Name: RIOS LYNN Facility: [facility]:[place] : 1940 Planned Disposition: Home Anticipated Discharge Date: 08/22/20 Discharge Date: Expected LOS: 2 Initial Reviewer: [email or web address] Initial Review Date: 08/22/2020 Generated: 08/22/20 4:59 pm DCPIA - Discharge Planning Initial Assessment Updated by [email or web address]: Rios Mercado on 08/22/20 3:59 pm * Is the patient Alert and Oriented? Yes * Pharmacy [facility] [address] * Preadmission Environment Home Alone * ADLs Independent * Equipment None * List name and contact numbers for known caregivers / representatives who currently or will assist patient after discharge: No one * Verbal permission to speak to the caregivers and representatives has been obtained from the patient. N/A * Community resources currently utilized None * Additional services required to return to the preadmission environment? No * Can the patient safely return to the preadmission environment? Yes * Has this patient been hospitalized within the prior 30 days at any hospital? No Coverage Notice Reviewer: [email or web address] Abdias Rios Notice Issued Date-Time: 08/20/2020 10:47 Notice Type: Medicare Outpatient Observation Notice Notice Delivered To: Patient Relationship to Patient: Self Seeing Eye Dog Trainer Name: Delivery Method: HAND - Hand Delivered Dominique Days: Prior Verbal Notification: Recipient Understood Notice: Yes Recipient Signature: Yes Med Rec Note Co-signed by Attending: Coverage Notice Comment: LARA DELIVERED Reviewer: [id number] - Rios Mercado Notice Issued Date-Time: 08/22/2020 15:54 Notice Type: IM Discharge Notice Notice Delivered To: Patient Relationship to Patient: Self Seeing Eye Dog Trainer Name: Delivery Method: HAND - Hand Delivered Dominique Days: Prior Verbal Notification: Recipient Understood Notice: Yes Recipient Signature: Yes Med Rec Note Co-signed by Attending: Coverage Notice Comment: IMM explained, signed, given, copy placed in MR Patient Name: RIOS LYNN Page [phone] at 1600 All edits/amendments must be made on the electronic document DICTATION DATE: 08/22/201599 PORTABLE SAWYER: RICK 08/22/201599 RPT#: [id number] DC DATE: STATUS: ADM IN [facility] [address] [place] [address] END OF REPORT
--- NOTE | 2020-08-22 16:10 | MORECARE ---
CASE MANAGEMENT DISCHARGE SUMMARY PATIENT: RIOS LYNN UNIT: [id number] ADM DATE: 08/20/20 AGE: 80 : 42 SEX: F ROOM/BED: D.4233 AUTHOR: ESTHER LOGAN PHYSICIAN: REFERRING PHYSICIAN: DALTON LÓPEZ MD DATE OF SERVICE: 08/22/20 Discharge Plan Patient Name: RIOS LYNN Facility: [facility]:[place] : 1940 Planned Disposition: Home Anticipated Discharge Date: 08/22/20 Discharge Date: Expected LOS: 2 Initial Reviewer: [email or web address] Initial Review Date: 08/22/2020 Generated: 08/22/20 5:10 pm Comments DCP- Discharge Planning Updated by [id number]: Rios Mercado on 08/22/20 3:[address] Patient Name: RISO LYNN Admission Status: ER Accout number: [id number] Admission Date: 08-20-2020 : 1940 Admission Diagnosis: Attending: DALTON LÓPEZ Current LOS: 2 Anticipated DC Date: 08-22-2020 Planned Disposition: Home Primary Insurance: [employer] ADV Discharge Planning Comments: CM met with patient to complete initial dc planning assessment. CM educated patient on the CM role and verbal consent given by patient to complete assessment. Patient lives at home alone. At discharge patient plans to return and feels this is a safe discharge. CM discussed availability of home health, rehab services, and medical equipment. Patient denied known discharge needs at this time. States "I have walkers and stuff to use if I need it, but I haven't had to have it yet." States she plans on driving herself home. States she does not have any family or friends to assist her. She will not tell me her home address, states "I don't tell anyone that." States "I live about 5-10 minutes away." CM will continue to follow and will assist as needed with dc plans/needs. Sample Dye Mixer: Rios Mercado DCPIA - Discharge Planning Initial Assessment Updated by [id number]: Rios Mercado on 08/22/20 3:59 pm * Is the patient Alert and Oriented? Yes * Pharmacy [facility] [address] * Preadmission Environment Home Alone * ADLs Independent * Equipment None * List name and contact numbers for known caregivers / representatives who currently or will assist patient after discharge: No one * Verbal permission to speak to the caregivers and representatives has been obtained from the patient. N/A * Community resources currently utilized None * Additional services required to return to the preadmission environment? No * Can the patient safely return to the preadmission environment? Yes * Has this patient been hospitalized within the prior 30 days at any hospital? No Coverage Notice Reviewer: [id number] Abdias Rios Notice Issued Date-Time: 08/20/2020 10:47 Notice Type: Medicare Outpatient Observation Notice Notice Delivered To: Patient Relationship to Patient: Self Developmental Specialist Name: Delivery Method: HAND - Hand Delivered Dominique Days: Prior Verbal Notification: Recipient Understood Notice: Yes Recipient Signature: Yes Med Rec Note Co-signed by Attending: Coverage Notice Comment: LARA DELIVERED Reviewer: [id number] - Rios Mercado Notice Issued Date-Time: 08/22/2020 15:54 Notice Type: IM Discharge Notice Notice Delivered To: Patient Relationship to Patient: Self Developmental Specialist Name: Delivery Method: HAND - Hand Delivered Dominique Days: Prior Verbal Notification: Recipient Understood Notice: Yes Recipient Signature: Yes Med Rec Note Co-signed by Attending: Coverage Notice Comment: IMM explained, signed, given, copy placed in MR Last DP export: 08/22/20 3:00 p Patient Name: RIOS LYNN Page [id number] at 1610 All edits/amendments must be made on the electronic document DICTATION DATE: 08/22/20 161 FOOD AND BEVERAGE LEAD: RICK 08/22/20 1610 RPT#: [id number] DC DATE: STATUS: ADM IN [facility] [address] [place] [address] END OF REPORT
--- NOTE | 2020-08-22 17:13 | NUR ---
NO CHANGES TO RT GROIN FROM PREVIOUS ASSESSMENT. BEDREST OVER, PT DENIES ANY NEEDS AT THIS TIME. CALL LIGHT IN REACH,NAD NOTED, WILL CONTINUE TO MONITOR.
--- NOTE | 2020-08-22 19:28 | NUR ---
PT AT NURSES DESK FULLY DRESSED WITH HER BELONGINGS IN HER HAND, YELLING THAT SHE IS GOING HOME, ASKED PT WHAT WAS GOING ON AND WHY SHE WAS LEAVING, SHE STATED THAT THE DOCTOR TOLD HER THAT SHE COULD GO. INFORMED PT THAT WE DONT HAVE ORDERS FOR HER TO LEAVE TONIGHT AND THAT SHE CAN PROBABLY GO HOME IN THE MORNING. PT PUT HER FINGER IN THIS NURSES FACE AND YELLED " NO IM GOING HOME NOW" INFORMED PT THAT SHE WILL HAVE TO SIGN A FORM STATING THAT SHE IS LEAVING AGAINST MEDICAL ADVICE, PT STATED THAT SHE HAS CHECKED HER SELF OUT OF MANY HOSPITALS. GAVE PT HER SCRIPTS FOR COREG AND PLAVIX AND STRESSED THE IMPORTANCE OF HER TAKING THOSE MEDICATIONS, PT STATED UNDERSTANDING. AMA FORM SIGNED, IV REMOVED.
--- NOTE | 2020-08-22 19:34 | NUR ---
BROOK MENDIETA APN FOR DR LUNA NOTIFED THAT PT HAS LEFT AMA.
--- NOTE | 2020-08-22 19:42 | NUR ---
NOTIFIED ALYCE GUADALUPE APN FOR [facility] THAT PT LEFT AMA.
--- NOTE | 2020-08-23 13:54 | MORECARE ---
CASE MANAGEMENT DISCHARGE SUMMARY PATIENT: RIOS LYNN UNIT: [id number] ADM DATE: 08/20/20 AGE: 80 : 42 SEX: F ROOM/BED: D.5645 AUTHOR: DESMONDDOC PHYSICIAN: REFERRING PHYSICIAN: DALTON LÓPEZ MD DATE OF SERVICE: 08/23/20 Discharge Plan Patient Name: RIOS LYNN Facility: [facility]:[place] : 1940 Planned Disposition: Home Anticipated Discharge Date: 08/22/20 Discharge Date: 08/22/2020 Expected LOS: 2 Initial Reviewer: [id number] Initial Review Date: 08/22/2020 Generated: 08/23/20 2:53 pm Comments DCP- Discharge Planning Updated by [id number]: Rios Mercado on 08/22/20 3:[address] Patient Name: RIOS LYNN Admission Status: ER Accout number: [id number] Admission Date: 08-20-2020 : 1940 Admission Diagnosis: Attending: DALTON LÓPEZ Current LOS: 2 Anticipated DC Date: 08-22-2020 Planned Disposition: Home Primary Insurance: [employer] ADV Discharge Planning Comments: CM met with patient to complete initial dc planning assessment. CM educated patient on the CM role and verbal consent given by patient to complete assessment. Patient lives at home alone. At discharge patient plans to return and feels this is a safe discharge. CM discussed availability of home health, rehab services, and medical equipment. Patient denied known discharge needs at this time. States "I have walkers and stuff to use if I need it, but I haven't had to have it yet." States she plans on driving herself home. States she does not have any family or friends to assist her. She will not tell me her home address, states "I don't tell anyone that." States "I live about 5-10 minutes away." CM will continue to follow and will assist as needed with dc plans/needs. Inside Barrel Lathe Operator: Rios Mercado DCPIA - Discharge Planning Initial Assessment Updated by [id number]: Rios Mercado on 08/22/20 3:59 pm * Is the patient Alert and Oriented? Yes * Pharmacy [facility] [address] * Preadmission Environment Home Alone * ADLs Independent * Equipment None * List name and contact numbers for known caregivers / representatives who currently or will assist patient after discharge: No one * Verbal permission to speak to the caregivers and representatives has been obtained from the patient. N/A * Community resources currently utilized None * Additional services required to return to the preadmission environment? No * Can the patient safely return to the preadmission environment? Yes * Has this patient been hospitalized within the prior 30 days at any hospital? No Coverage Notice Reviewer: [id number] Abdias Rios Notice Issued Date-Time: 08/20/2020 10:47 Notice Type: Medicare Outpatient Observation Notice Notice Delivered To: Patient Relationship to Patient: Self Player Services Representative Name: Delivery Method: HAND - Hand Delivered Dominique Days: Prior Verbal Notification: Recipient Understood Notice: Yes Recipient Signature: Yes Med Rec Note Co-signed by Attending: Coverage Notice Comment: LARA DELIVERED Reviewer: [id number] - Rios Mercado Notice Issued Date-Time: 08/22/2020 15:54 Notice Type: IM Discharge Notice Notice Delivered To: Patient Relationship to Patient: Self Player Services Representative Name: Delivery Method: HAND - Hand Delivered Dominique Days: Prior Verbal Notification: Recipient Understood Notice: Yes Recipient Signature: Yes Med Rec Note Co-signed by Attending: Coverage Notice Comment: IMM explained, signed, given, copy placed in MR Last DP export: 08/22/20 3:10 p Patient Name: RIOS LYNN Page [phone] at 1354 All edits/amendments must be made on the electronic document DICTATION DATE: 08/23/20 1354 SOLE CONDITIONER: RICK 08/23/20 1354 RPT#: [id number] DC DATE:08/22/20 STATUS: DIS IN [facility] [address] [place] [address] END OF REPORT
== END 2020-08-22 19:50 | disposition left against medical advice (07) | DRG 247 ==
LOC: D.ER 08:59 → D.M2 11:19 → OBSVTIME 08-20 14:00 → D.M2 08-20 14:07
PROVIDERS: Family Medicine; Internal Medicine Cardiovascular Disease; ADMIT Emergency Medicine; ATTEND Emergency Medicine
PROC: 4A023N7 Measurement of Cardiac Sampling and Pressure, Left Heart, Percutaneous Approach (ICD-10-PCS; 2020-08-20)
PROC: B2111ZZ Fluoroscopy of Multiple Coronary Arteries using Low Osmolar Contrast (ICD-10-PCS; 2020-08-20)
PROC: B2151ZZ Fluoroscopy of Left Heart using Low Osmolar Contrast (ICD-10-PCS; 2020-08-20)
PROC: 027034Z Dilation of Coronary Artery, One Artery with Drug-eluting Intraluminal Device, Percutaneous Approach (ICD-10-PCS; principal; 2020-08-20 09:00)
PROC: 027034Z Dilation of Coronary Artery, One Artery with Drug-eluting Intraluminal Device, Percutaneous Approach (ICD-10-PCS; 2020-08-22)
DX: I21.4 Non-ST elevation (NSTEMI) myocardial infarction (principal); I16.1 Hypertensive emergency; E86.0 Dehydration; I70.0 Atherosclerosis of aorta; R91.8 Other nonspecific abnormal finding of lung field; K44.9 Diaphragmatic hernia without obstruction or gangrene; I25.119 Atherosclerotic heart disease of native coronary artery with unspecified angina pectoris; Z87.891 Personal history of nicotine dependence